=== PATIENT | female | born 1980 | race African-American/Black ===

== ENCOUNTER 2018-08-01 19:25 | Emergency (ER) | payer OTHER | END 2018-08-02 00:53 | disposition left against medical advice (07) | LOC: JER 08-02 00:53 | DX: R07.89 Other chest pain (principal) ==

== ENCOUNTER 2018-08-02 14:53 | Emergency (ER) | payer OTHER ==
[2018-08-02 15:12] VITALS: BP 119/67; PULSE 77; TEMP 98.2; BMI 25.5
--- NOTE | 2018-08-02 15:16 | PDOC ---
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
[2018-08-02] MEDS ORDERED: SODIUM CHLORIDE 1,000 ML IV STA (15:53)
[2018-08-02] MEDS ORDERED: METOCLOPRAMIDE HCL INJECTION 10 MG/2 ML VIAL IVPUSH ONE (15:55)
[2018-08-02] MEDS ORDERED: MECLIZINE HCL 25 MG TABLET (FP) PO ONE (15:55)
[2018-08-02] MEDS ORDERED: MECLIZINE HCL 25 MG TABLET (FP) ONE (16:03)
[2018-08-02] MEDS ORDERED: METOCLOPRAMIDE HCL INJECTION 10 MG/2 ML VIAL ONE (16:03)
--- NOTE | 2018-08-02 16:15 | PDOC ---
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 The patient states she has a headache on the left side of her head that is associated with left facial numbness and sensory abnormalities. She also endorses dizziness described as lightheadedness associated with the heacdache. She states when she lies down or gets up the room occasionally spins and she is worried about her balance. She states the left side of her face is always weak but usually she has no sensory problems on the left side of her face. Now she states she has a headache and a sharp stabbing sensation around her left eye. The patient also feels like there is something swollen in her neck. The patient also states she is seeing abnormal floaters out of her left eye. Allergies: NKDA. banana, carrot, watermelon Past surgical history: Cholecystectomy Social history: No reported cigarette, alcohol, or drug use. PCP: @ [facility] Past History - Past Medical History Allergies/Adverse Reactions: Allergies Allergy/AdvReac Type Severity Reaction Status Date / Time banana Allergy Verified 08/02/18 15:06 carrot Allergy Verified 08/02/18 15:06 watermelon Allergy Verified 08/02/18 15:06 Home Medications: Ambulatory Orders NK [No Known Home Medication] 08/02/18 Asthma: No Cancer: No Cardiac Disorders: No COPD: No Diabetes: No HTN: No Seizures: No Thyroid Disease: No - Reproductive History Ectopic : Yes - Suicide/Smoking/Psychosocial Hx Smoking History: Never smoked Have you smoked in the past 12 months: No Information on smoking cessation initiated: No Hx Alcohol Use: No Drug/Substance Use Hx: No Substance Use Type: None Hx Substance Use Treatment: No Review of Systems - Review of Systems Able to Perform ROS?: Yes Comments:: CONSTITUTIONAL: Absent: fever, no chills, no fatigue EYES: Present: visual changes ENT: Absent: ear pain, no sore throat CARDIOVASCULAR: Absent: chest pain, no palpitations RESPIRATORY: Absent: cough, no SOB GI: Absent: abdominal pain, no nausea, no vomiting, no constipation, no diarrhea GENITOURINARY: Absent: dysuria, no frequency, no hematuria MUSKULOSKELETAL: Absent: back pain, no arthralgia, no myalgia SKIN: Absent: rash NEURO: Present: headache *Physical Exam - Vital Signs Last Vital Signs Temp Pulse Resp BP Pulse Ox 98.2 F 77 16 119/67 100 08/02/18 15:07 08/02/18 15:07 08/02/18 15:07 08/02/18 15:07 08/02/18 15:07 - Physical Exam Comments: GENERAL: Well-appearing, well-nourished. No apparent distress. HEENT: Normocephalic, atraumatic. PERRL, EOM intact. CARDIOVASCULAR: Normal S1, S2. Regular rate and rhythm. PULMONARY: No evidence of respiratory distress. Lungs clear to auscultation bilaterally. No wheezing, rales or rhonchi. ABDOMEN: Soft, non-distended, non-tender. EXTREMITIES: Normal ROM in all four extremities. No gross deformities. SKIN: Warm, dry. No rash NEUROLOGICAL: There is decreased sensation on the left side of the patient's face in all 3 CN5 distrbutions. The patient's left lower lip has a droop. Alert, awake, appropriate. EOMI, PERRLA. Otherwise, CN 2-12 intact. No deficits to light touch in upper extremities and lower extremities. No motor deficits in the upper extremities and lower extremities. No pronator drift. Normoreflexic patellar and tricep reflexies. Normal speech. Toes are down-going bilaterally. Gait is normal without ataxia. No dysmetria. No dysdiadochokinesis. No abnormal nystagmus. 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 The patient states she has a headache on the left side of her head that is associated with left facial numbness and sensory abnormalities. She also endorses dizziness described as lightheadedness associated with the heacdache. She states when she lies down or gets up the room occasionally spins and she is worried about her balance. She states the left side of her face is always weak but usually she has no sensory problems on the left side of her face. Now she states she has a headache and a sharp stabbing sensation around her left eye. The patient also feels like there is something swollen in her neck. The patient also states she is seeing abnormal floaters out of her left eye. Vital Signs Temp Pulse Resp BP Pulse Ox 98.2 F 77 16 119/67 100 08/02/18 15:07 08/02/18 15:07 08/02/18 15:07 08/02/18 15:07 08/02/18 15:07 DDx IBNLT: Peripheral vs central vertigo, headache - complex migraine vs tension vs cluster, Thyroid abnormality, electrolyte/metabolic disturbance, brain bleed, cva/tia, batista palsy Plan: Labs, Urine, Head CT, analgesia, ekg, IV hydration, meclizine, re-assess. Labs unremarkable. Head CT shows no acute pathology. Mild finding on CT which patient was given a copy of and recommended to follow up with her PCP regarding this finding. Patient experienced significant relief after medications in ED and feels better. She requests to be discharged. Will send the patient home with PCP and neuro follow up. *DC/Admit/Observation/Transfer Diagnosis at time of Disposition: Headache - Discharge Dispostion Disposition: HOME - Referrals Referrals: [facility] [place] [Provider Group] Shaq Marte MD [Staff Physician] - - Patient Instructions Printed Discharge Instructions: DI for Headache Additional Instructions: You came into the ER with a headache. We did a head CT which showed no acute abnormalities. You were given a copy of your head CT results to discuss with the primary care doctor we are referring you to. We looked at your blood and urine and found no outstanding abnormalities. You felt better after receiving medications in our ED. It is very important for you to schedule a follow up appointment with your primary care doctor that we are referring you to in the next 3 days. We are also giving you the number for a neurologist to call and schedule an appointment with. Come back to the ER immediately if your pain worsens or you have any other new or worsening concerns. Thank you for coming to the [facility]. We hope you feel better soon! Print Language: HEBREW - Post Discharge Activity
[2018-08-02 16:49] LABS: EPI CELLS 6.2 /HPF (0-5/HPF); HYALINE CASTS 6 /lpf (0-8); URINE APPEARANCE CLEAR; URINE BACTERIA 179.9 /hpf (NEGATIVE); URINE BILIRUBIN NEGATIVE (NEGATIVE); URINE COLOR YELLOW; URINE GLUCOSE (UA) NEGATIVE (NEGATIVE); URINE KETONE TRACE (NEGATIVE); URINE LEUK ESTERASE 1+ (NEGATIVE); URINE NITRITE NEGATIVE (NEGATIVE); URINE PROTEIN NEGATIVE (NEGATIVE); URINE RBC 3 /hpf (0-4); URINE WBC 1 /hpf (0-5)
[2018-08-02 16:58] LABS: BASO % 1.2 % (0-2.0); EOS % 4.5 % (0-4.5); HEMATOCRIT 32.1 % (32.4-45.2); HEMOGLOBIN 10.4 GM/dL (10.7-15.3); MCH 27.4 pg (25.7-33.7); MCHC 32.3 g/dl (32.0-36.0); MEAN CELL VOLUME 84.9 fl (80-96); MEAN PLT VOLUME 7.7 fl (7.5-11.1); MONO % 8.4 % (3.8-10.2); NEUT % 47.9 % (42.8-82.8); PLATELET COUNT 238 K/MM3 (134-434); RBC 3.78 M/mm3 (3.60-5.2); WHITE BLOOD COUNT 4.6 K/mm3 (4.0-10.0)
[2018-08-02 17:03] LABS: ALBUMIN 3.3 g/dl (3.4-5.0); BILIRUBIN,TOTAL 0.3 mg/dL (0.2-1); BLOOD UREA NITROGEN 13.3 mg/dL (7-18); CALCIUM 8.7 mg/dL (8.5-10.1); CREATININE 0.8 mg/dL (0.55-1.3); POTASSIUM 3.6 mmol/L (3.5-5.1); TOT PROT 6.9 g/dl (6.4-8.2)
[2018-08-02 17:10] LABS: INR 1.08 (0.83-1.09); PROTHROMBIN TIME (PATIENT) 12.8 SEC (9.7-13.0)
--- NOTE | 2018-08-02 18:43 | PDOC ---
Documentation entered by Amelia Solo SCRIBE, acting as scribe for Lady Ron MD. Lady Ron MD: This documentation has been prepared by the heribertoibe, Amelia Solo SCRIBE, under my direction and personally reviewed by me in its entirety. I confirm that the documentation accurately reflects all work, treatment, procedures, and medical decision making performed by me. Attending Attestation - Resident Resident Name: Kelvin Griffin - ED Attending Attestation I have performed the following: I have examined & evaluated the patient, The case was reviewed & discussed with the resident, I agree w/resident's findings & plan, Exceptions are as noted - HPI HPI: 08/02/18 17:58 The patient is a 38 year old female with a past medical history significant for [place] palsy (left facial droop) presents to the emergency department with headache and dizziness. The patient presents with a headache, associated with dizziness, left eye blurriness and room spinning sensation when standing. The patient was seen at the ER on 08/01/2018 for similar symptoms and AMAd for personal matters. The patient presents for further management. Allergies: banana, carrot, watermelon. NKDA - Physicial Exam PE: 08/02/18 18:40 GENERAL: The patient is in no acute distress. ENT: Ears normal, nares patent, oropharynx clear without exudates. Moist mucous membranes. NECK: Normal range of motion, supple LUNGS: Breath sounds equal, clear to auscultation bilaterally. No wheezes, and no crackles. HEART:Regular rate and rhythm, normal S1 and S2 without murmur, rub or gallop. ABDOMEN: Soft, nontender, normoactive bowel sounds. EXTREMITIES: Normal range of motion, no edema. NEUROLOGICAL: Cranial nerves II through XII grossly intact. Left lower facial weakness, able to lift eyebrows. Normal speech. No weakness or other numbness. SKIN: Warm, Dry, normal turgor, no rashes or lesions noted. - Medical Decision Making 08/02/18 18:42 Laboratory Tests 08/02/18 08/02/18 08/02/18 16:10 16:10 16:10 WBC 4.6 Hgb 10.4 L Hct 32.1 L Plt Count 238 INR 1.08 BUN Creatinine Creatine Kinase Index CK-MB (CK-2) Troponin I Urine Blood Urine Nitrite Ur Leukocyte Esterase Urine WBC (Auto) Urine RBC (Auto) Urine HCG, Qual Negative 08/02/18 08/02/18 08/02/18 16:10 16:10 16:10 WBC Hgb Hct Plt Count INR BUN 13.3 Creatinine 0.8 Creatine Kinase Index 0.8 CK-MB (CK-2) 1.4 Troponin I < 0.02 Urine Blood 3+ H Urine Nitrite Negative Ur Leukocyte Esterase 1+ H Urine WBC (Auto) 1 Urine RBC (Auto) 3 Urine HCG, Qual CT head - no acute intracranial pathology Will discharge to home
--- NOTE | 2018-08-03 11:16 | EKG ---
Test Reason : Blood Pressure : / mmHG Vent. Rate : 074 BPM Atrial Rate : 074 BPM P-R Int : 164 ms QRS Dur : 086 ms QT Int : 408 ms P-R-T Axes : 068 023 057 degrees QTc Int : 452 ms NORMAL SINUS RHYTHM NORMAL ECG WHEN COMPARED WITH ECG OF 01-AUG-2018 19:31, NO SIGNIFICANT CHANGE WAS FOUND Confirmed by ROB MORAN MD ([id number]) on 08/03/2018 11:16:14 AM Referred By: Confirmed By:ROB MORAN MD
== END 2018-08-02 18:54 | disposition home or self-care (01) ==
LOC: JER 14:53
PROC: 3E0337Z Introduction of Electrolytic and Water Balance Substance into Peripheral Vein, Percutaneous Approach (ICD-10-PCS; principal; 2018-08-02)
PROC: 3E033GC Introduction of Other Therapeutic Substance into Peripheral Vein, Percutaneous Approach (ICD-10-PCS; 2018-08-02)
DX: R51 Headache (principal); Z86.69 Personal history of other diseases of the nervous system and sense organs
CPT/HCPCS: 36415; 70450-TC; 80053; 81003; 82465; 82550; 82553; 83718; 83721; 84443; 84478; 84484; 84703; 85025; 85610; 86850; 86900; 86901; 93005; 93010; 96361; 96374; 99283-25; J7030

== ENCOUNTER 2019-02-10 11:15 | Emergency (ER) | payer OTHER ==
[2019-02-10 11:31] VITALS: BP 102/47; PULSE 86; TEMP 98; BMI 25.7
[2019-02-10] MEDS ORDERED: SODIUM CHLORIDE 1,000 ML IV STA (12:17)
[2019-02-10] MEDS ORDERED: ACETAMINOPHEN 325 MG TABLET (FP) PO ONE (12:17)
[2019-02-10] MEDS ORDERED: METOCLOPRAMIDE HCL INJECTION 10 MG/2 ML VIAL IVPUSH ONE (12:17)
--- NOTE | 2019-02-10 12:20 | PDOC ---
Documentation entered by Chito Hernandez SCRIBE, acting as scribe for Jessenia Zurita MD. Jessenia Zurita MD: This documentation has been prepared by the David holt Xhesika, SCRIBE, under my direction and personally reviewed by me in its entirety. I confirm that the documentation accurately reflects all work, treatment, procedures, and medical decision making performed by me. History of Present Illness - General Chief Complaint: Syncope/Near Syncope Stated Complaint: CHEST PAIN Time Seen by Provider: 02/10/19 11:59 History Source: Patient Exam Limitations: No Limitations - History of Present Illness Initial Comments: 02/10/19 12:27 HPI The patient is a 38 year old female, A4, unknown gestation, with no significant PMH of who presents to the emergency department for chest tightness and generalized fatigue, dizziness since yesterday; noted vaginal bleeding this morning upon waking up in bed. The patient states this morning she felt sudden onset dizziness, went to use the bathroom, came back to bed, laid down on bed and closed her eyes, and when she woke back up, she noticed dark blood on her bed sheets. Pt notes she is still bleeding, primarily upon wiping. Patient reports endorsing abdominal cramping and diarrhea secondary to her symptoms. Pt reports nausea since the beginning of her . Pt notes she has had 4 previous miscarriages and bleeding with her first born child. Pt denies any intercourse, trauma or new sexual activity. pt reports irregular menstrual periods with her LMP December 10, 2018. has not established care with OB, has upcoming appt on 02/14/19. Denies fever, chills, SOB, palpitation, weakness, bladder and bowel problems, focal weakness/paresthesias, leg swelling/pain, rash. No sick contacts or travel. No new changes in medications. No suspicious food intake. no trauma. Allergies: None Past Medical History/PSH: None reported Social history: Lives with family. No tobacco, ETOH or drug use. Meds: as documented in EMR Family history: noncontributory Review of systems Constitutional: no fevers or chills. + generalized fatigue HEENT: no headache . No congestion. No visual/hearing disturbances.+dizziness CVS: no syncope. +chest tightness Resp: no sob. No cough. Gastrointestinal: + abdominal cramping. +nausea. + diarrhea. No vomiting. Genitourinary: + vaginal bleeding. no urinary sx, hematuria. no urgency or frequency. no discharge. no malodor. MUSCULOSKELETAL: No joint pain and swelling. No neck or back pain. SKIN: no redness or skin changes, no discharge, no rash. No wounds. Hematologic: no easy bruising/bleeding. NEUROLOGIC: No headache, dizziness, LOC or altered mental status. No weakness, numbness or tingling. Psych: no anxiety or depression Allergic/Immunologic: no allergies All other systems reviewed and negative, or as documented in HPI. Physical exam General: Well appearing, awake and alert, NAD. HEENT: NCAT, PERRL, EOMI, clear conjunctiva, anicteric, moist mucus membranes, clear oropharynx, no oral lesions.. Neck: neck supple, FROM Resp: CTAB, normal and even respirations, no respiratory distress CVS: RRR, no murmurs, 2+ peripheral pulses throughout, no peripheral edema Abdomen: soft, NTND, no rebound or guarding. No CVAT. Back: nontender, normal inspection and ROM MSK: + reproducible left sided anterior chest wall tenderness. no edema, MCKENZIE x4 , ROM intact. No clubbing or cyanosis. normal bulk and tone. /pelvic:+ scant dark red blood at vaginal vault. normal external genitalia, no lesions, no CMT, no adnexal tenderness. Smooth and pink cervix, closed. Extremities: no calf tenderness Neuro: alert, oriented appropriately; no focal neurologic deficits, gait stable. speech clear. Psych: Calm and cooperative Skin: warm and well perfused, cap refill <2 sec, normal color, no pallor. 02/10/19 12:44 02/10/19 13:13 02/10/19 14:37 Past History - Past Medical History Allergies/Adverse Reactions: Allergies Allergy/AdvReac Type Severity Reaction Status Date / Time banana Allergy Verified 02/10/19 11:31 carrot Allergy Verified 02/10/19 11:31 watermelon Allergy Verified 02/10/19 11:31 Home Medications: Ambulatory Orders NK [No Known Home Medication] 08/02/18 Asthma: No Cancer: No Cardiac Disorders: No COPD: No Diabetes: No HTN: No Seizures: No Thyroid Disease: No - Reproductive History Ectopic : Yes - Psycho Social/Smoking Cessation Hx Smoking History: Never smoked Have you smoked in the past 12 months: No Hx Alcohol Use: No Drug/Substance Use Hx: No Substance Use Type: None Hx Substance Use Treatment: No *Physical Exam - Vital Signs Last Vital Signs Temp Pulse Resp BP Pulse Ox 98 F 86 18 102/47 L 100 02/10/19 11:29 02/10/19 11:29 02/10/19 11:29 02/10/19 11:29 02/10/19 11:29 Heart Score/ECG Review #1 ECG reviewed & interpreted by me at: 11:25 General ECG Interpretation: Sinus Rhythm, Normal Rate, Normal Intervals 02/10/19 12:19 EKG normal sinus rhythm at 79 bpm, no interval abnormalities, narrow QRS, ST and T wave segments and morphology normal ED Treatment Course - LABORATORY CBC & Chemistry Diagram: 02/10/19 12:52 02/10/19 12:52 - RADIOLOGY Radiology Studies Ordered: Category Date Time Status TRANSVAGINAL US PREG [US] Stat Ultrasound 02/10/19 12:18 Ordered Medical Decision Making - Medical Decision Making 02/10/19 13:12 Vital Signs Temp Pulse Resp BP Pulse Ox 98 F 86 18 102/47 L 100 02/10/19 11:29 02/10/19 11:29 02/10/19 11:29 02/10/19 11:29 02/10/19 11:29 DDx female VB: ectopic , miscarriage, demise, subchorionic hematoma, retained POC, normal first trimester bleeding, UTI in in . Fibroid uterus, vaginitis, infection, electrolyte/metabolic derangements, anemia. Rh positive, no rhogam indicated VS wnl, normotensive, no tachy or hypoxia/respiratory distress. doubt cardiac or PE. abdomen benign on reeval and no peritoneal findings, scant VB in vag vault here , controlled pt given analgesia and reglan for nausea. declined IV placement, nita PO intake and fluids. chest pain likely msk, as reproducible. EKG unremarkable, trop neg, unlikely cardiac. not true syncope, as pt was laying down, may have fallen asleep. neuro intact. H/H wnl. lytes/CMP wnl UA neg for blood/infection. Beta hcg 22,000, inconsistent with ultrasound (TAB and TVUS) - will need trending in 2-3 days. and followup on ultrasound limited pocus TAB done, IUP seen at 7 weeks, no FF. discordant with dates? vs early IUP. CRL estimation of FB at 7 weeks, LMP 12/10/18 TVUS with likely demise, with dates inconcordant with LMP, no FHR identified. treat as threatened , miscarriage/bleeding precautions. 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 Dr Dwyer, law office receptionist janitorial maintenance worker/ob given. 02/10/19 14:17 02/10/19 14:36 02/10/19 14:37 Discharge - Discharge Information Problems reviewed: Yes Clinical Impression/Diagnosis: demise, Vaginal bleeding in , Threatened in first trimester Condition: Stable Disposition: HOME - Admission No - Follow up/Referral Referrals: Lawanda Mott [Primary Care Provider] - Darryl Harden MD [Staff Physician] - - Patient Discharge Instructions Patient Printed Discharge Instructions: DI for Threatened , DI for Atypical Chest Pain, DI for Vaginal Bleeding During Additional Instructions: 1) Please follow-up with your primary care doctor/e commerce strategist-precision assembler in the next 1-2 days. Please call tomorrow for for any urgent issues. referral for a precision assembler is given, as the doctors will need to keep checking your beta hcg ( number) and monitor your bleeding 2) You were given a copy of the tests performed today. Please bring the results with you and review them with your primary care doctor. Your laboratory / imaging results were remarkable for likely demise, you could develop more bleeding and have a miscarriage as fetus does not appear viable. your laboratory results are within normal limits your beta hcg is 22,073 3) If you have any worsening of symptoms or any other concerns please return to the ED immediately. Return if worsening symptoms including fevers, headache, vomiting, visual or hearing disturbances, abdominal pain, chest pain, shortness of breath, syncope, dehydration, inability to take things by mouth/vomiting, altered mental status, worsening bleeding, or worsening concerning symptoms. 4) Please continue taking your home medications as directed. you can take tylenol as needed for pain control Stay well hydrated and rest adequately. Make an appointment. If you cannot follow-up with your primary care doctor please return to the ED - Post Discharge Activity Work/Back to School Note: Back to Work
[2019-02-10] MEDS ORDERED: ACETAMINOPHEN 325 MG TABLET (FP) ONE (12:40)
[2019-02-10] MEDS ORDERED: METOCLOPRAMIDE HCL INJECTION 10 MG/2 ML VIAL ONE (12:40)
[2019-02-10 13:20] LABS: URINE APPEARANCE CLEAR; URINE BILIRUBIN NEGATIVE (NEGATIVE); URINE COLOR YELLOW; URINE GLUCOSE (UA) NEGATIVE (NEGATIVE); URINE KETONE NEGATIVE (NEGATIVE); URINE LEUK ESTERASE NEGATIVE (NEGATIVE); URINE NITRITE NEGATIVE (NEGATIVE); URINE PROTEIN NEGATIVE (NEGATIVE)
[2019-02-10 13:21] LABS: BASO % 0.9 % (0-2.0); EOS % 2.8 % (0-4.5); HEMATOCRIT 33.6 % (32.4-45.2); HEMOGLOBIN 10.8 GM/dL (10.7-15.3); LYMPH % 34.3 % (8-40); MCH 27.4 pg (25.7-33.7); MCHC 32.2 g/dl (32.0-36.0); MEAN CELL VOLUME 85.1 fl (80-96); MEAN PLT VOLUME 7.2 fl (7.5-11.1); PLATELET COUNT 237 K/MM3 (134-434); RBC 3.94 M/mm3 (3.60-5.2); RDW 16.5 % (11.6-15.6); WHITE BLOOD COUNT 4.8 K/mm3 (4.0-10.0)
--- NOTE | 2019-02-10 13:40 | EKG ---
Test Reason : Blood Pressure : / mmHG Vent. Rate : 079 BPM Atrial Rate : 079 BPM P-R Int : 150 ms QRS Dur : 084 ms QT Int : 400 ms P-R-T Axes : 068 002 050 degrees QTc Int : 458 ms NORMAL SINUS RHYTHM WITH SINUS ARRHYTHMIA NORMAL ECG WHEN COMPARED WITH ECG OF 02-AUG-2018 14:55, NO SIGNIFICANT CHANGE WAS FOUND Confirmed by BARRY ALLISON MD ([id number]) on 02/10/2019 1:40:09 PM Referred By: Confirmed By:BARRY ALLISON MD
[2019-02-10 14:06] LABS: ALBUMIN 3.5 g/dl (3.4-5.0); BILIRUBIN,TOTAL 0.4 mg/dL (0.2-1); BLOOD UREA NITROGEN 11.6 mg/dL (7-18); CALCIUM 8.9 mg/dL (8.5-10.1); CREATININE 0.7 mg/dL (0.55-1.3); TOT PROT 7.2 g/dl (6.4-8.2)
== END 2019-02-10 14:46 | disposition home or self-care (01) ==
LOC: JER 11:15
PROC: BY49ZZZ Ultrasonography of First Trimester, Single Fetus (ICD-10-PCS; principal; 2019-02-10)
DX: O26.891 Other specified pregnancy related conditions, first trimester (principal); O02.1 Missed abortion; Z3A.01 Less than 8 weeks gestation of pregnancy; Z91.018 Allergy to other foods
CPT/HCPCS: 36415; 76801-TC; 76815; 76817-TC; 80053; 81003; 82550; 82553; 84484; 84702; 85025; 86850; 86900; 86901; 87086; 93005; 93010; 99283-25

== ENCOUNTER → 2021-01-02 | Day surgery (SDC) | payer OTHER | END | disposition home or self-care (01) | LOC: JASU-SURG 10:40 | PROVIDERS: ATTEND Internal Medicine Endocrinology, Diabetes & Metabolism | PROC: 0G9K3ZX Drainage of Thyroid Gland, Percutaneous Approach, Diagnostic (ICD-10-PCS; principal; 2021-01-02) | DX: E04.1 Nontoxic single thyroid nodule (principal) | CPT/HCPCS: 10005; 76942; 88173; 88305-TC ==

== ENCOUNTER 2022-01-31 15:56 | Emergency (ER) | payer OTHER ==
[2022-01-31 17:26] VITALS: TEMP 99.2; BMI 27.2
[2022-01-31] MEDS ORDERED: DEXAMETHASONE SOD PHOSPHATE 10 MG/1 ML VIAL IM ONE (17:36)
[2022-01-31] MEDS ORDERED: KETOROLAC TROMETHAMINE 30 MG/1 ML VIAL IM ONE (17:36)
[2022-01-31] MEDS ORDERED: KETOROLAC TROMETHAMINE 30 MG/1 ML VIAL ONE (18:35)
[2022-01-31] MEDS ORDERED: DEXAMETHASONE SOD PHOSPHATE 10 MG/1 ML VIAL ONE (18:35)
[2022-01-31 21:37] VITALS: BP 128/75; PULSE 90; RESP 18
== END 2022-01-31 21:37 | disposition home or self-care (01) ==
LOC: JER 15:56
PROC: 3E023GC Introduction of Other Therapeutic Substance into Muscle, Percutaneous Approach (ICD-10-PCS; principal; 2022-01-31)
DX: J02.0 Streptococcal pharyngitis (principal)
CPT/HCPCS: 0241U-QW; 87651; 99284-25; J1100

== ENCOUNTER 2022-02-28 04:12 | Emergency (ER) | payer OTHER ==
[2022-02-28 04:21] VITALS: BMI 27.0
[2022-02-28] MEDS ORDERED: DEXAMETHASONE SOD PHOSPHATE 10 MG/1 ML VIAL IVPUSH ONE (04:42)
[2022-02-28] MEDS ORDERED: ACETAMINOPHEN 1000 MG/100 ML BAG IVPB ONE (04:42)
[2022-02-28] MEDS ORDERED: DEXAMETHASONE SOD PHOSPHATE 10 MG/1 ML VIAL ONE (04:57)
[2022-02-28] MEDS ORDERED: ACETAMINOPHEN INJECTION 100 ML IVPB ONE (04:57)
[2022-02-28 05:19] LABS: BASO % 1.1 % (0-2.0); EOS % 4.1 % (0-4.5); HEMATOCRIT 34.9 % (32.4-45.2); HEMOGLOBIN 11.3 GM/dL (10.7-15.3); LYMPH % 22.6 % (8-40); MCH 27.8 pg (25.7-33.7); MCHC 32.4 g/dl (32.0-36.0); MEAN CELL VOLUME 85.7 fl (80-96); MEAN PLT VOLUME 7.5 fl (7.5-11.1); MONO % 7.7 % (3.8-10.2); NEUT % 64.5 % (42.8-82.8); PLATELET COUNT 252 10^3/uL (134-434); RBC 4.08 M/mm3 (3.60-5.2); WHITE BLOOD COUNT 6.1 K/mm3 (4.0-10.0)
[2022-02-28 05:27] LABS: CALCIUM 8.4 mg/dL (8.5-10.1)
[2022-02-28 05:28] LABS: ALBUMIN 3.1 g/dl (3.4-5.0); BLOOD UREA NITROGEN 14.8 mg/dL (7-18)
[2022-02-28 05:31] LABS: CREATININE 0.7 mg/dL (0.55-1.3)
[2022-02-28 05:32] LABS: BILIRUBIN,TOTAL 0.3 mg/dL (0.2-1)
[2022-02-28 05:33] LABS: TOT PROT 6.7 g/dl (6.4-8.2)
[2022-02-28] MEDS ORDERED: CLINDAMYCIN 600MG PREMIX IVPB 600 MG/50 ML BAG IVPB ONE ×2 (08:11→08:21)
[2022-02-28 09:28] VITALS: BP 125/84; PULSE 75; RESP 18; TEMP 98
== END 2022-02-28 09:51 | disposition short-term general hospital (02) ==
LOC: JER 04:12
PROC: 3E033GC Introduction of Other Therapeutic Substance into Peripheral Vein, Percutaneous Approach (ICD-10-PCS; principal; 2022-02-28)
DX: J02.0 Streptococcal pharyngitis (principal)
CPT/HCPCS: 0241U-QW; 36415; 70491-TC; 80053; 84436; 84439; 84443; 84479; 84703; 85025; 99285-25; J1100; Q9967